=== PATIENT | male | born 1945 | race Caucasian/White ===

== ENCOUNTER → 2019-09-05 | Outpatient (CLI) | payer MEDICARE ==
[~2019-09-05] VITALS: Ht 195 cm; Wt 121.0 kg
[~2019-09-05] MED LIST: CATHETER FLUSH 10 ML SYR IV PRN; REGADENOSON 0.4 MG/5 ML SYR (LEXISCAN) IV ONE
[2019-09-09 17:20] VITALS: BP 153/103
--- NOTE | 2019-09-09 17:20 | Cardiology Stress Test Report ---
Stress Test Report Type of NM Stress Test: Test Type: LEXISCAN 0.4MG/5ML Date of Procedure/Referring: Date of Procedure: Sep 05, 2019 PCP Juan Carlos Guo MD Admitting Physician No,Local Physician Indications: Preoperative cardiovascular risk assessment, previous history of PCI. Baseline Heart Rate: 61 Baseline Blood Pressure: Blood Pressure Systolic: 153 Blood Pressure Diastolic: 103 Baseline EKG: Baseline EKG: sinus rhythm Summary & Conclusion: Summary: The patient was brought to the stress lab after informed consent was taken. Stress test was performed according to the Lexiscan protocol. 0.4 mg of IV Lexiscan was given. Low-grade exercise was performed. Baseline EKG showed sinus rhythm at 61 BPM, blood pressure 153/103 mmHg. Maximum heart rate 72 BPM and blood pressure 149/98 mmHg. Patient did not have any chest pain, arrhythmias or ST segment changes during the stress test. Few PVCs were noted. 10.81 mCi of Myoview were given for rest imaging and 33 mCi of Myoview given for stress imaging. Transient ischemic dilatation score 1.19, EF 59 percent. Normal wall motion. Small reversible apical defect. SSS 9, SRS 4, SDS 5. Conclusion: Pharmacological stress test was negative for ischemia. Normal LV function with no wall motion abnormalities. Small reversible apical defect. Clinical correlation is recommended. Juan Carlos GUO MD Sep 09, 2019 17:20
== END ==
LOC: CARD 06:46
PROVIDERS: ATTEND Internal Medicine Interventional Cardiology
DX: Z01.810 Encounter for preprocedural cardiovascular examination (principal); I25.10 Atherosclerotic heart disease of native coronary artery without angina pectoris; E78.2 Mixed hyperlipidemia; E11.9 Type 2 diabetes mellitus without complications
CPT/HCPCS: 78452; 93017; 93306

== ENCOUNTER → 2022-10-12 | Outpatient (CLI) | payer MEDICARE | LOC: CARD 08:35 | PROVIDERS: ATTEND Nurse Practitioner Family | DX: I51.7 Cardiomegaly (principal); I27.21 Secondary pulmonary arterial hypertension | CPT/HCPCS: 93306 ==